=== PATIENT | male | born 1965 | race Caucasian/White ===

== ENCOUNTER 2016-10-12 20:31 | Emergency (ER) | payer SELFPAY ==
[2016-10-12] MEDS ORDERED: TETRACAINE HCL 0.5% OPH SOLN 2 ML ONE (22:17)
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
[2016-10-12 22:55] VITALS: BP 142/90
== END 2016-10-12 22:36 | disposition home or self-care (01) ==
LOC: ER 20:31
DX: S06.0X9A Concussion with loss of consciousness of unspecified duration, initial encounter (principal); S05.02XA Injury of conjunctiva and corneal abrasion without foreign body, left eye, initial encounter; R68.84 Jaw pain; H57.12 Ocular pain, left eye; Y04.2XXA Assault by strike against or bumped into by another person, initial encounter; Y92.59 Other trade areas as the place of occurrence of the external cause; F10.129 Alcohol abuse with intoxication, unspecified; F17.200 Nicotine dependence, unspecified, uncomplicated; I10 Essential (primary) hypertension; R11.0 Nausea
CPT/HCPCS: 99284; 70450; 70486; 72125; L0120

== ENCOUNTER 2017-08-31 12:15 | Emergency (ER) | payer SELFPAY ==
--- NOTE | 2017-08-31 14:08 | RADIOLOGY REPORT (SQ) ---
EXAM DESCRIPTION: HAND RIGHT 3 VIEWS COMPLETED DATE/TIME: 08/31/2017 1:37 pm REASON FOR STUDY: injury COMPARISON: Right hand 06/27/2017, 08/18/2009 EXAM PARAMETERS: NUMBER OF VIEWS: Three views. TECHNIQUE: AP, lateral and oblique radiographic images acquired of the right hand. LIMITATIONS: None. FINDINGS: MINERALIZATION: Normal. BONES: Old healed right proximal 5th metacarpal fracture. No acute displaced fracture. JOINTS: No effusions. SOFT TISSUES: Old Metallic radiopaque foreign bodies are present over the right index finger DIP join t region. New metallic fragments in the dorsal soft tissues, at the level of the proximal right 4th metacarpal. There is soft tissue swelling over the metacarpophalangeal joint region on the lateral v iew OTHER: No other significant finding. IMPRESSION: Old proximal 5th metacarpal fracture. Old metallic foreign bodies over the index finger DIP region New dorsal 4th finger proximal phalanx radiopaque soft tissue foreign bodies with soft tissue swellin g. TECHNICAL DOCUMENTATION: JOB ID: [id number] [employer]- All Rights Reserved
--- NOTE | 2017-08-31 14:32 | ER Document Report ---
ED Extremity Problem, Upper - General Chief Complaint: Arm Injury Stated Complaint: FALL/RIGHT ARM PAIN Time Seen by Provider: 08/31/17 14:29 Notes: Patient is a 52-year-old male, right-handed, presents after he punched a wall is having right hand pain. Said he fell and landed on his right elbow. He is intoxicated and is unsure of his tetanus status. Patient denies numbness, tingling or any other injuries. TRAVEL OUTSIDE OF THE [place] IN LAST 30 DAYS: No - Related Data Allergies/Adverse Reactions: No Known Allergies Allergy (Verified 08/31/17 12:22) Past Medical History - General Information source: Patient - Social History Smoking Status: Current Every Day Smoker Family History: Reviewed & Not Pertinent - Past Medical History Cardiac Medical History: Reports: Hx Hypertension Renal/ Medical History: Denies: Hx Peritoneal Dialysis GI Medical History: Reports: Hx Gastroesophageal Reflux Disease, Hx Ulcer Past Surgical History: Reports: Hx Orthopedic Surgery - L thumb; L knee - Immunizations Hx Diphtheria, Pertussis, Tetanus Vaccination: No Review of Systems - Review of Systems Notes: REVIEW OF SYSTEMS: CONSTITUTIONAL: -fevers, -chills EENT: -eye pain, -difficulty swallowing, -nasal congestion CARDIOVASCULAR: -chest pain, -syncope. RESPIRATORY: -cough, -SOB GASTROINTESTINAL: -abdominal pain, -nausea, -vomiting, -diarrhea GENITOURINARY: -dysuria, -hematuria MUSCULOSKELETAL: +right hand and elbow pain, -back pain, -neck pain SKIN: -rash or skin lesions. HEMATOLOGIC: -easy bruising or bleeding. LYMPHATIC: -swollen, enlarged glands. NEUROLOGICAL: -altered mental status or loss of consciousness, -headache, - neurologic symptoms PSYCHIATRIC: -anxiety, -depression. ALL OTHER SYSTEMS REVIEWED AND NEGATIVE. Physical Exam - Notes Notes: PHYSICAL EXAMINATION: GENERAL: Well-appearing, well-nourished and in no acute distress. Intoxicated. HEAD: Atraumatic, normocephalic. EYES: Pupils equal round and reactive to light, extraocular movements intact, sclera anicteric, conjunctiva are normal. ENT: nares patent, oropharynx clear without exudates. Moist mucous membranes. NECK: Normal range of motion, supple without lymphadenopathy LUNGS: Breath sounds clear to auscultation bilaterally and equal. No wheezes rales or rhonchi. HEART: Regular rate and rhythm without murmurs ABDOMEN: Soft, nontender, normoactive bowel sounds. No guarding, no rebound. No masses appreciated. EXTREMITIES: Swelling and abrasions over right 3rd-5th MCP joints, full ROM and brisk capillary refill. No open wounds over 4th proximal phalanax. Tenderness over right posterior elbow. Normal range of motion, no pitting or edema. No cyanosis. NEUROLOGICAL: Cranial nerves grossly intact. Normal speech, normal gait. Normal sensory and motor exams. PSYCH: Normal mood, normal affect. SKIN: Warm, Dry, normal turgor, no rashes or lesions noted. Course - Re-evaluation Re-evalutation: No fractures seen on x-ray. Patient is adamant that he did not have any involvement with an oral cavity and he just punched a wall. Told him that he could lose his hand if he was not telling me the truth due to possible septic joints, but the brother corroborates his story and he appears sober. Spoke to patient about new metallic foreign bodies in his fourth finger, but he does not know what these are and there are no open wounds. He is not having pain in this area or signs of infection. Will have patient follow-up with a hand surgeon for a recheck and possible removal of these foreign bodies. Given very strict return precautions and he understands. - Diagnostic Test Radiology reviewed: Image reviewed, Reports reviewed Radiology results interpreted by me: Right hand x-ray: Old proximal 5th metacarpal fracture. Old metallic foreign bodies over the index finger DIP region. New dorsal 4th finger proximal phalanx radiopaque soft tissue foreign bodies with soft tissue swelling. Right elbow x-ray (PACS not working, but read on the portable x-ray machine): no fractures Discharge - Discharge Clinical Impression: Foreign body (FB) in soft tissue Hand contusion Qualifiers: Encounter type: initial encounter Laterality: right Qualified Code(s): S60.221A - Contusion of right hand, initial encounter Elbow contusion Qualifiers: Encounter type: initial encounter Laterality: right Qualified Code(s): S50.01XA - Contusion of right elbow, initial encounter Condition: Stable Disposition: HOME, SELF-CARE Additional Instructions: There are metallic foreign bodies in your right fourth finger, but no broken bones in your hand. You must follow-up with the hand surgeon to see if these need removed. Return to the ER if they look like they are becoming infected, such as redness of the finger, fevers or discharge from the wound. Do not punch cummings. Use Tylenol, Motrin and ice packs to help with any pain. Try to cut down on your drinking. Contusion Your injury has resulted in a contusion -- a crushing of the deep tissues. No injury to important structures was detected during the physician's exam. Contusions vary in the amount of pain they cause, and in the length of time required for healing. Typically, the area will become bruised, and will remain painful to touch for two or three weeks. However, most patients are back to working and playing within a few days. After the initial period of rest and cold-packs, your symptoms (together with the doctor's recommendations) will determine how rapidly you can get back to full activity. Usually this means "do what feels okay, but don't do things that hurt." If re-examination was recommended, it's important to follow up as instructed. Call the doctor or return any time if pain increases, if swelling becomes severe, if you develop numbness or weakness in an injured extremity, or if any other alarming symptoms occur. Forms: Elevated Blood Pressure Referrals: ZEV NEWELL, [ACTIVE STAFF] - Follow up as needed
[2017-08-31] MEDS ORDERED: IBUPROFEN 600 MG TABLET PO ONE (14:43)
[2017-08-31] MEDS ORDERED: ACETAMINOPHEN 325 MG TABLET PO ONE (14:43)
[2017-08-31] MEDS ORDERED: DIPH/PERTUSS(ACELL)/TETANUS VAC/PF 0.5 ML SYR (>=10YO) IM ONE (14:50)
--- NOTE | 2017-08-31 16:45 | RADIOLOGY REPORT (SQ) ---
EXAM DESCRIPTION: ELBOW RIGHT OVER 2 VIEWS COMPLETED DATE/TIME: 08/31/2017 4:22 pm REASON FOR STUDY: right elbow pain COMPARISON: None. NUMBER OF VIEWS: Four views. TECHNIQUE: AP, lateral, and both oblique radiographic images acquired of the right elbow. LIMITATIONS: Study is limited somewhat due to the patient's condition. FINDINGS: MINERALIZATION: Normal. BONES: No acute fracture or dislocation. No worrisome bone lesions. JOINT: Small calcific density is identified between the distal humerus and proximal radius in the AP projection which could represent an intra-articular loose body. SOFT TISSUES: No soft tissue swelling. No foreign body. OTHER: No other significant finding. IMPRESSION: No acute fracture dislocation. Other findings as noted above TECHNICAL DOCUMENTATION: JOB ID: [id number] [employer]- All Rights Reserved
[2017-08-31] MEDS ORDERED: LIDOCAINE 1% INJ-PF (10 MG/ML) 30 ML SDV ONE (19:57)
== END 2017-08-31 15:35 | disposition home or self-care (01) ==
LOC: ER 12:15
DX: S60.221A Contusion of right hand, initial encounter (principal); M79.641 Pain in right hand; W22.01XA Walked into wall, initial encounter; S50.01XA Contusion of right elbow, initial encounter; M25.521 Pain in right elbow; W19.XXXA Unspecified fall, initial encounter; M79.5 Residual foreign body in soft tissue; F10.129 Alcohol abuse with intoxication, unspecified; I10 Essential (primary) hypertension; F17.200 Nicotine dependence, unspecified, uncomplicated
CPT/HCPCS: 90471; 90715; 99283

== ENCOUNTER 2017-08-31 17:12 | Inpatient (IN) | payer SELFPAY ==
--- NOTE | 2017-08-31 18:38 | EKG REPORT ---
SEVERITY:- OTHERWISE NORMAL ECG - SINUS TACHYCARDIA : Confirmed by: Osman Paz MD 31-Aug-2017 18:37:44
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
[2017-08-31] MEDS ORDERED: NICOTINE 21 MG/24 HR PATCH.TD24 TD ONE (19:09)
[2017-08-31 19:35] LABS: ABSOLUTE BASOPHILS # (AUTO) 0.1 10^3/uL (0.0-0.2); ABSOLUTE LYMPHOCYTES (AUTO) 2.8 10^3/uL (0.5-4.7); ABSOLUTE MONOCYTES (AUTO) 0.9 10^3/uL (0.1-1.4); ABSOLUTE NEUT (AUTO) 11.7 10^3/uL (1.7-8.2); BASOPHILS % (AUTO) 0.7 % (0-2); EOSINOPHILS % (AUTO) 0.3 % (0-6); HEMATOCRIT 47.7 % (37.9-51.0); HEMOGLOBIN 16.3 g/dL (13.5-17.0); LYMPHOCYTES % (AUTO) 18.1 % (13-45); MEAN CORPUSCULAR HEMOGLOBIN 38.1 pg (27.0-33.4); MEAN CORPUSCULAR HGB CONC 34.1 g/dL (32.0-36.0); MONOCYTES % (AUTO) 6.1 % (3-13); PLATELET COUNT 217 10^3/uL (150-450); RED BLOOD COUNT 4.27 10^6/uL (4.35-5.55); RED CELL DISTRIBUTION WIDTH 14.8 % (11.5-14.0); SEGMENTED NEUTROPHILS % (AUTO) 74.8 % (42-78); TOTAL CELLS COUNTED % (AUTO) 100 %; WHITE BLOOD COUNT 15.6 10^3/uL (4.0-10.5)
[2017-08-31] MEDS ORDERED: KETAMINE HCL INJ 500 MG/10 ML VIAL IV ONE (19:50)
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
[2017-08-31] MEDS ORDERED: KETAMINE HCL INJ 500 MG/10 ML VIAL ONE (19:52)
[2017-08-31 19:53] LABS: TOXIC GRANULATION SLIGHT
[2017-08-31 19:54] LABS: ANISOCYTOSIS SLIGHT; PLATELET COMMENT ADEQUATE; STOMATOCYTES SLIGHT
[2017-08-31 19:55] LABS: MEAN CORPUSCULAR VOLUME 112 fl (80-97)
[2017-08-31] MEDS ORDERED: LORAZEPAM INJ 2 MG/1 ML VIAL IV ONE (19:55)
[2017-08-31 19:56] LABS: ALANINE AMINOTRANSFERASE 34 U/L (21-72); ALBUMIN 5.1 g/dL (3.5-5.0); ALKALINE PHOSPHATASE 246 U/L (38-126); ANION GAP 14 (5-19); ASPARTATE AMINO TRANSFERASE 112 U/L (17-59); BILIRUBIN,DIRECT 0.5 mg/dL (0.0-0.4); BILIRUBIN,TOTAL 0.7 mg/dL (0.2-1.3); BLOOD UREA NITROGEN 11 mg/dL (7-20); CALCIUM 9.3 mg/dL (8.4-10.2); CARBON DIOXIDE 28 mmol/L (22-30); CHLORIDE 106 mmol/L (98-107); GLUCOSE 106 mg/dL (75-110); POTASSIUM 4.3 mmol/L (3.6-5.0); SODIUM 148.4 mmol/L (137-145); TOTAL PROTEIN 8.6 g/dL (6.3-8.2)
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
--- NOTE | 2017-08-31 20:52 | RADIOLOGY REPORT (SQ) ---
EXAM DESCRIPTION: CHEST SINGLE VIEW COMPLETED DATE/TIME: 08/31/2017 8:39 pm REASON FOR STUDY: chest tube PLACEMENT COMPARISON: CT dated 08/31/2017. EXAM PARAMETERS: NUMBER OF VIEWS: One view. TECHNIQUE: Single frontal radiographic view of the chest acquired. RADIATION DOSE: NA LIMITATIONS: None. FINDINGS: LUNGS AND PLEURA: No opacities, masses or pneumothorax. No pleural effusion. MEDIASTINUM AND HILAR STRUCTURES: No masses. Contour normal. HEART AND VASCULAR STRUCTURES: Heart normal in size. Normal vasculature. BONES: No acute findings. HARDWARE: Right-sided chest tube. OTHER: Right side subcutaneous emphysema. IMPRESSION: RIGHT SIDE PNEUMOTHORAX NO LONGER PRESENT AFTER PLACEMENT OF CHEST TUBE. THE RIGHT RIB FRACTURE VISUALIZED ON CT IS NOT VISIBLE ON X-RAY. TECHNICAL DOCUMENTATION: JOB ID: [id number] [employer]- All Rights Reserved
[2017-08-31] MEDS ORDERED: FENTANYL CITRATE INJ/PF 100 MCG/2 ML AMPUL IV ONE (21:58)
[2017-08-31] MEDS: MORPHINE SULFATE 10 MG/ML INJ IV PRN (22:23)
[2017-08-31] MEDS: ONDANSETRON HCL INJ/PF 4 MG/2 ML SDV IV PRN (22:32)
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
[2017-08-31] MEDS ORDERED: MORPHINE SULFATE 10 MG/ML INJ IV ONE (22:46)
[2017-09-01] MEDS ORDERED: INFLUENZA ADLT QUAD (36MOS+) 2017-18 VAC 0.5 ML SYR IM PRN (00:09)
[2017-09-01] MEDS: NORMAL SALINE 1000 ML 1,000 ML IV PRN ×2 (00:27→11:05)
[2017-09-01] MEDS: OXYCODONE-ACETAMINOPHEN 5-325 MG TABLET PO PRN ×5 (00:36→19:33)
[2017-09-01] MEDS: MORPHINE SULFATE 10 MG/ML INJ IV PRN ×2 (03:13→13:37)
[2017-09-01] MEDS ORDERED: LORAZEPAM INJ 2 MG/1 ML VIAL IV PRN (06:54)
[2017-09-01] MEDS ORDERED: LORAZEPAM INJ 2 MG/1 ML VIAL ONE (06:56)
[2017-09-01 07:19] LABS: ABSOLUTE BASOPHILS # (AUTO) 0.1 10^3/uL (0.0-0.2); ABSOLUTE LYMPHOCYTES (AUTO) 1.5 10^3/uL (0.5-4.7); ABSOLUTE NEUT (AUTO) 8.3 10^3/uL (1.7-8.2); BASOPHILS % (AUTO) 0.9 % (0-2); EOSINOPHILS % (AUTO) 0.2 % (0-6); HEMATOCRIT 41.5 % (37.9-51.0); HEMOGLOBIN 14.3 g/dL (13.5-17.0); LYMPHOCYTES % (AUTO) 14.1 % (13-45); MEAN CORPUSCULAR HEMOGLOBIN 38.8 pg (27.0-33.4); MEAN CORPUSCULAR HGB CONC 34.6 g/dL (32.0-36.0); MEAN CORPUSCULAR VOLUME 112 fl (80-97); MONOCYTES % (AUTO) 9.2 % (3-13); PLATELET COUNT 174 10^3/uL (150-450); RED CELL DISTRIBUTION WIDTH 14.7 % (11.5-14.0); SEGMENTED NEUTROPHILS % (AUTO) 75.6 % (42-78); TOTAL CELLS COUNTED % (AUTO) 100 %; WHITE BLOOD COUNT 10.9 10^3/uL (4.0-10.5)
[2017-09-01 07:33] LABS: ALANINE AMINOTRANSFERASE 38 U/L (21-72); ALBUMIN 4.3 g/dL (3.5-5.0); ALKALINE PHOSPHATASE 214 U/L (38-126); ANION GAP 16 (5-19); ASPARTATE AMINO TRANSFERASE 86 U/L (17-59); BILIRUBIN,DIRECT 0.5 mg/dL (0.0-0.4); BILIRUBIN,TOTAL 1.2 mg/dL (0.2-1.3); BLOOD UREA NITROGEN 12 mg/dL (7-20); CALCIUM 8.6 mg/dL (8.4-10.2); CARBON DIOXIDE 22 mmol/L (22-30); CHLORIDE 103 mmol/L (98-107); GLUCOSE 67 mg/dL (75-110); LIPASE 119.7 U/L (23-300); POTASSIUM 3.7 mmol/L (3.6-5.0); TOTAL PROTEIN 6.8 g/dL (6.3-8.2)
[2017-09-01 07:56] LABS: ANISOCYTOSIS SLIGHT; PLATELET COMMENT ADEQUATE; POLYCHROMASIA SLIGHT; STOMATOCYTES SLIGHT
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
[2017-09-01] MEDS: FOLIC ACID 1 MG TABLET PO SCH (09:07)
[2017-09-01] MEDS: THIAMINE HCL 100 MG TABLET PO SCH (09:08)
[2017-09-01] MEDS: MULTIVITAMIN TABLET PO SCH (09:08)
[2017-09-01 09:16] LABS: APPEARANCE,URINE CLEAR; BILIRUBIN,URINE NEGATIVE (NEGATIVE); COLOR,URINE YELLOW; GLUCOSE, URINE NEGATIVE (NEGATIVE); KETONES,URINE 20 mg/dL (NEGATIVE); LEUKOCYTE ESTERASE,URINE NEGATIVE (NEGATIVE); NITRITE,URINE NEGATIVE (NEGATIVE); PROTEIN,URINE NEGATIVE (NEGATIVE)
[2017-09-01 09:17] LABS: URINE SPECIFIC GRAVITY > 1.060
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
[2017-09-01] MEDS ORDERED: DIPHENHYDRAMINE HCL 25 MG CAPSULE PO ONE (15:00)
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
[2017-09-02] MEDS: OXYCODONE-ACETAMINOPHEN 5-325 MG TABLET PO PRN ×2 (00:07→05:20)
[2017-09-02] MEDS: ONDANSETRON HCL INJ/PF 4 MG/2 ML SDV IV PRN (05:31)
[2017-09-02 06:55] LABS: HEMATOCRIT 40.9 % (37.9-51.0); HEMOGLOBIN 14.1 g/dL (13.5-17.0); MEAN CORPUSCULAR HEMOGLOBIN 38.8 pg (27.0-33.4); MEAN CORPUSCULAR HGB CONC 34.4 g/dL (32.0-36.0); MEAN CORPUSCULAR VOLUME 113 fl (80-97); PLATELET COUNT 126 10^3/uL (150-450); RED BLOOD COUNT 3.63 10^6/uL (4.35-5.55); RED CELL DISTRIBUTION WIDTH 14.3 % (11.5-14.0); WHITE BLOOD COUNT 5.8 10^3/uL (4.0-10.5)
[2017-09-02 07:09] LABS: ALANINE AMINOTRANSFERASE 31 U/L (21-72); ALKALINE PHOSPHATASE 180 U/L (38-126); ANION GAP 8 (5-19); ASPARTATE AMINO TRANSFERASE 59 U/L (17-59); BILIRUBIN,DIRECT 0.5 mg/dL (0.0-0.4); BILIRUBIN,TOTAL 1.6 mg/dL (0.2-1.3); BLOOD UREA NITROGEN 8 mg/dL (7-20); CALCIUM 9.2 mg/dL (8.4-10.2); CARBON DIOXIDE 29 mmol/L (22-30); CHLORIDE 100 mmol/L (98-107); GLUCOSE 90 mg/dL (75-110); POTASSIUM 4.5 mmol/L (3.6-5.0); SODIUM 137.2 mmol/L (137-145); TOTAL PROTEIN 6.6 g/dL (6.3-8.2)
[2017-09-02 08:13] LABS: FOLATE 7.12 ng/mL (>2.76)
--- NOTE | 2017-09-02 08:34 | RADIOLOGY REPORT (SQ) ---
EXAM DESCRIPTION: CHEST SINGLE VIEW COMPLETED DATE/TIME: 09/02/2017 8:20 am REASON FOR STUDY: Pneumothorax COMPARISON: Chest films 09/01/2017, 08/26/2017 CT chest 08/31/2017 EXAM PARAMETERS: NUMBER OF VIEWS: One view. TECHNIQUE: Single frontal radiographic view of the chest acquired. RADIATION DOSE: NA LIMITATIONS: None. FINDINGS: LUNGS AND PLEURA: A right chest tube is in place, unchanged from 09/01/2017, 757 hours. There is trace deep in the right apical pneumothorax. Stable right chest wall air. No focal infiltrates. No pleural effusion. No left pneumothorax. MEDIASTINUM AND HILAR STRUCTURES: No masses. Contour normal. HEART AND VASCULAR STRUCTURES: Heart normal in size. Normal vasculature. BONES: Right lateral 5th rib fracture is difficult to visualize on today's plain film HARDWARE: Right chest tube in good positioning OTHER: No other significant finding. IMPRESSION: Right chest tube in good positioning. Trace if any apical pneumothorax. Stable minimal right lateral chest wall air TECHNICAL DOCUMENTATION: JOB ID: [id number] [employer]- All Rights Reserved
[2017-09-02] MEDS: THIAMINE HCL 100 MG TABLET PO SCH (08:56)
[2017-09-02] MEDS: FOLIC ACID 1 MG TABLET PO SCH (08:56)
[2017-09-02] MEDS: MULTIVITAMIN TABLET PO SCH (08:57)
[2017-09-02] MEDS ORDERED: NICOTINE 21 MG/24 HR PATCH.TD24 TD ONE (14:05)
--- NOTE | 2017-09-02 16:32 | RADIOLOGY REPORT (SQ) ---
EXAM DESCRIPTION: CHEST PA/LAT COMPLETED DATE/TIME: 09/02/2017 4:22 pm REASON FOR STUDY: POST CHEST TUBE REMOVAL COMPARISON: Chest films 09/02/2017, 09/01/2017, 08/31/2017 EXAM PARAMETERS: NUMBER OF VIEWS: two views TECHNIQUE: Digital Frontal and Lateral radiographic views of the chest acquired. RADIATION DOSE: NA LIMITATIONS: none FINDINGS: LUNGS AND PLEURA: Post right chest tube removal. No right pneumothorax. No focal pulmona ry infiltrates. No pleural effusion. MEDIASTINUM AND HILAR STRUCTURES: No masses or contour abnormalities. HEART AND VASCULAR STRUCTURES: Heart normal size. No evidence for failure. BONES: Right lateral 5th rib fracture not well seen by plain films HARDWARE: None in the chest. OTHER: Minimal right chest wall soft tissue air IMPRESSION: Post right chest tube removal without pneumothorax. TECHNICAL DOCUMENTATION: JOB ID: [id number] [employer]- All Rights Reserved
--- NOTE | 2017-09-02 17:28 | PDOC PROGRESS REPORT ---
Subjective Progress Note for:: 09/02/17 Subjective:: Pains at the chest tube site Reason For Visit: TRAUMATIC PNEUMOTHORAX,FRACTURE RIGHT 5TH RIB Physical Exam Vital Signs: Temp Pulse Resp BP Pulse Ox 98.1 F 66 18 142/74 H 98 09/02/17 14:57 09/02/17 14:57 09/02/17 14:57 09/02/17 14:57 09/02/17 14:57 Intake & Output 09/01/17 09/02/17 09/03/17 06:59 06:59 06:59 Intake Total 120 720 535 Output Total 50 1350 625 Balance 70 -630 -90 Weight 70.5 kg 77.8 kg Exam: Right chest tube was removed and an inclusive dressing over a xeroform gauze. Results Laboratory Results: 09/02/17 06:02 09/02/17 06:02 09/02/17 09/02/17 06:02 06:02 WBC 5.8 RBC 3.63 L Hgb 14.1 Hct 40.9 MCV 113 H MCH 38.8 H MCHC 34.4 RDW 14.3 H Plt Count 126 L Sodium 137.2 Potassium 4.5 Chloride 100 Carbon Dioxide 29 Anion Gap 8 BUN 8 Creatinine 0.61 Est GFR ( Amer) > 60 Est GFR (Non-Af Amer) > 60 Glucose 90 Calcium 9.2 Total Bilirubin 1.6 H AST 59 ALT 31 Alkaline Phosphatase 180 H Total Protein 6.6 Albumin 4.0 Vitamin B12 471.0 Folate 7.12 Impressions: Chest CT 08/31/17 19:01 IMPRESSION: 1. LARGE RIGHT PNEUMOTHORAX. 2. FRACTURE OF THE LATERAL RIGHT 5TH RIB. SUBCUTANEOUS EMPHYSEMA IN THE RIGHT CHEST WALL. Head CT 08/31/17 19:01 IMPRESSION: NORMAL BRAIN CT WITHOUT CONTRAST. EVIDENCE OF ACUTE STROKE: NO. Cervical Spine CT 08/31/17 19:04 IMPRESSION: CHRONIC DEGENERATIVE CHANGES. NO ACUTE FINDINGS. Chest X-Ray 09/02/17 06:00 IMPRESSION: Right chest tube in good positioning. Trace if any apical pneumothorax. Stable minimal right lateral chest wall air Assessment & Plan - Diagnosis (1) Head injury Qualifiers: Encounter type: initial encounter Qualified Code(s): S09.90XA - Unspecified injury of head, initial encounter Is this a current diagnosis for this admission?: Yes (2) Pneumothorax, traumatic Qualifiers: Encounter type: initial encounter Qualified Code(s): S27.0XXA - Traumatic pneumothorax, initial encounter Is this a current diagnosis for this admission?: Yes (3) Chest pain Qualifiers: Chest pain type: unspecified Qualified Code(s): R07.9 - Chest pain, unspecified Is this a current diagnosis for this admission?: Yes (4) Elbow contusion Qualifiers: Encounter type: initial encounter Laterality: right Qualified Code(s): S50.01XA - Contusion of right elbow, initial encounter Is this a current diagnosis for this admission?: Yes (5) Hand contusion Qualifiers: Encounter type: initial encounter Laterality: right Qualified Code(s): S60.221A - Contusion of right hand, initial encounter - Time Time Spent with patient: 15-24 minutes - Plan Summary Plan Summary: Chest xray post chest tube removal showed right lung well expanded with no pneumothorax Will discharge patient and follow up at the surgical clinic in 2 weeks.
[2017-09-02 17:31] VITALS: BP 131/85
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
== END 2017-09-02 18:17 | disposition home or self-care (01) | DRG 200 ==
LOC: ER 17:12 → EH 20:45 → 4S 23:44
PROVIDERS: ADMIT Surgery; ATTEND Surgery
PROC: 0W9900Z Drainage of Right Pleural Cavity with Drainage Device, Open Approach (ICD-10-PCS; principal; 2017-08-31)
DX: S27.0XXA Traumatic pneumothorax, initial encounter (principal); F10.239 Alcohol dependence with withdrawal, unspecified; S22.31XA Fracture of one rib, right side, initial encounter for closed fracture; I10 Essential (primary) hypertension; K21.9 Gastro-esophageal reflux disease without esophagitis; F17.210 Nicotine dependence, cigarettes, uncomplicated; S50.01XA Contusion of right elbow, initial encounter; S60.221A Contusion of right hand, initial encounter; S09.90XA Unspecified injury of head, initial encounter; V47.0XXA Car driver injured in collision with fixed or stationary object in nontraffic accident, initial encounter
CPT/HCPCS: 36415; 70450; 71045; 71046; 71260; 72125; 80053; 81001; 82607; 82746; 82962; 83690; 85025; 85027; 93005; 93010; 94799; 96374; 96375; 99291; 99152; J2060; J2270; J2405; J3490; J7030

== ENCOUNTER 2017-09-05 20:32 | Emergency (ER) | payer SELFPAY ==
--- NOTE | 2017-09-05 20:54 | ER Document Report ---
ED Respiratory Problem - General Chief Complaint: Breathing Difficulty Stated Complaint: DIFFICULTY BREATHING Mode of Arrival: Medic Information source: Patient, Emergency Med Personnel TRAVEL OUTSIDE OF THE [place] IN LAST 30 DAYS: No - HPI Notes: 52-year-old gentleman presented today via EMS for evaluation of shortness of breath. Patient has a history of pneumothorax of his right lung status post chest tube. Patient had chest tube removed prior to his disposition from the hospital. Patient called ambulance because he was feeling short of breath. Upon arrival of EMS patient appears to be complaining of gasping for air but has bilateral breath sounds. Patient also has been drinking and smells of alcohol. - Related Data Allergies/Adverse Reactions: No Known Allergies Allergy (Verified 08/31/17 12:22) Past Medical History - General Information source: Patient, Emergency Med Personnel - Social History Smoking Status: Current Some Day Smoker Frequency of alcohol use: Heavy Family History: Reviewed & Not Pertinent - Past Medical History Cardiac Medical History: Reports: Hx Hypertension Renal/ Medical History: Denies: Hx Peritoneal Dialysis GI Medical History: Reports: Hx Gastroesophageal Reflux Disease, Hx Ulcer Past Surgical History: Reports: Hx Orthopedic Surgery - L thumb; L knee - Immunizations Hx Diphtheria, Pertussis, Tetanus Vaccination: No Review of Systems - Review of Systems Notes: REVIEW OF SYSTEMS: CONSTITUTIONAL: -fevers, -chills EENT: -eye pain, -difficulty swallowing, -nasal congestion CARDIOVASCULAR: -chest pain, -syncope. RESPIRATORY: -cough, + shortness of breath GASTROINTESTINAL: -abdominal pain, -nausea, -vomiting, -diarrhea GENITOURINARY: -dysuria, -hematuria MUSCULOSKELETAL: -back pain, -neck pain SKIN: -rash or skin lesions. HEMATOLOGIC: -easy bruising or bleeding. LYMPHATIC: -swollen, enlarged glands. NEUROLOGICAL: -altered mental status or loss of consciousness, -headache, - neurologic symptoms PSYCHIATRIC: -anxiety, -depression. ALL OTHER SYSTEMS REVIEWED AND NEGATIVE. Physical Exam - Notes Notes: Reviewed vital signs and nursing note as charted by RN. CONSTITUTIONAL: Alert and oriented and responds appropriately, smells of alcohol HEAD: Normocephalic; atraumatic, old facial abrasions EYES: PERRL; Conjunctivae clear, sclerae non-icteric ENT: normal nose; no rhinorrhea; moist mucous membranes; pharynx without lesions noted NECK: Supple without meningismus CARD: Regular rate and rhythm; no murmurs, no clicks, no rubs, no gallops; symmetric distal pulses RESP: Normal chest excursion without splinting or tachypnea; breath sounds clear and equal bilaterally patient has a very unusual breathing pattern, patient is gasping for air but does not appear to be in respiratory distress ABD/GI: Normal bowel sounds; non-distended; soft, BACK: The back appears normal and is non-tender to palpation EXT: Normal ROM in all joints; non-tender to palpation; no cyanosis, no effusions, no edema SKIN: Normal color for age and race; warm; dry; good turgor; capillary refill < 2 seconds; no acute lesions noted NEURO: .Cranial nerves 3-12 intact. Motor strength 5/5 bilaterally. Sensation intact to touch bilaterally. No pronator drift. Finger to nose intact bilaterally PSYCH: Appropriate, smells of alcohol Course - Re-evaluation Re-evalutation: 09/05/17 20:30 Patient is here for evaluation of shortness of breath, patient does have history of previous pneumothorax We will obtain chest x-ray Patient appears to be hemodynamically stable, no hypoxia or respiratory distress Reassessment 9:30 PM Patient is hemo-dynamically stable, chest x-ray with no acute pneumothorax We will discharge home No suspicion for recurrence of pneumothorax - Diagnostic Test Radiology reviewed: Image reviewed Radiology results interpreted by me: 09/05/17 21:30 Chest x-ray with no pneumothorax or recurrent pneumothorax Discharge - Discharge Clinical Impression: Alcohol abuse, Shortness of breath Condition: Stable Disposition: HOME, SELF-CARE Instructions: Dyspnea, Nonspecific ([facility]) Additional Instructions: Please come back if he had worsening shortness of breath, chest pain or difficulty breathing
--- NOTE | 2017-09-05 21:12 | RADIOLOGY REPORT (SQ) ---
EXAM DESCRIPTION: CHEST SINGLE VIEW COMPLETED DATE/TIME: 09/05/2017 8:48 pm REASON FOR STUDY: SOB COMPARISON: 09/02/2017 and 08/31/2017. EXAM PARAMETERS: NUMBER OF VIEWS: One view. TECHNIQUE: Single frontal radiographic view of the chest acquired. RADIATION DOSE: NA LIMITATIONS: None. FINDINGS: LUNGS AND PLEURA: No opacities, masses or pneumothorax. No pleural effusion. MEDIASTINUM AND HILAR STRUCTURES: No masses. Contour normal. HEART AND VASCULAR STRUCTURES: Heart normal in size. Normal vasculature. BONES: No acute findings. HARDWARE: None in the chest. OTHER: Right side subcutaneous emphysema has improved. No other significant finding. IMPRESSION: NO ACUTE RADIOGRAPHIC FINDING IN THE CHEST. NO RESIDUAL OR RECURRENT PNEUMOTHORAX. TECHNICAL DOCUMENTATION: JOB ID: [id number]- All Rights Reserved
[2017-09-05 21:49] VITALS: BP 103/75
== END 2017-09-05 21:50 | disposition home or self-care (01) ==
LOC: ER 20:32
DX: R06.02 Shortness of breath (principal); F10.10 Alcohol abuse, uncomplicated; F17.200 Nicotine dependence, unspecified, uncomplicated; I10 Essential (primary) hypertension; Z98.890 Other specified postprocedural states; Z87.09 Personal history of other diseases of the respiratory system
CPT/HCPCS: 71045; 99285

== ENCOUNTER 2017-10-08 19:51 | Emergency (ER) | payer SELFPAY ==
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
[2017-10-08 22:14] LABS: ABSOLUTE BASOPHILS # (AUTO) 0.1 10^3/uL (0.0-0.2); ABSOLUTE LYMPHOCYTES (AUTO) 1.5 10^3/uL (0.5-4.7); ABSOLUTE MONOCYTES (AUTO) 0.4 10^3/uL (0.1-1.4); EOSINOPHILS % (AUTO) 0.3 % (0-6); HEMATOCRIT 49.3 % (37.9-51.0); LYMPHOCYTES % (AUTO) 21.9 % (13-45); MEAN CORPUSCULAR HEMOGLOBIN 38.6 pg (27.0-33.4); MEAN CORPUSCULAR HGB CONC 34.5 g/dL (32.0-36.0); MEAN CORPUSCULAR VOLUME 112 fl (80-97); MONOCYTES % (AUTO) 5.8 % (3-13); RED BLOOD COUNT 4.41 10^6/uL (4.35-5.55); TOTAL CELLS COUNTED % (AUTO) 100 %
[2017-10-08 22:20] LABS: ALANINE AMINOTRANSFERASE 54 U/L (21-72); ALBUMIN 4.6 g/dL (3.5-5.0); ALKALINE PHOSPHATASE 249 U/L (38-126); ANION GAP 16 (5-19); ASPARTATE AMINO TRANSFERASE 147 U/L (17-59); BILIRUBIN,DIRECT 0.5 mg/dL (0.0-0.4); BILIRUBIN,TOTAL 0.8 mg/dL (0.2-1.3); BLOOD UREA NITROGEN 13 mg/dL (7-20); CARBON DIOXIDE 29 mmol/L (22-30); CHLORIDE 102 mmol/L (98-107); GLUCOSE 70 mg/dL (75-110); POTASSIUM 3.9 mmol/L (3.6-5.0); SODIUM 147.3 mmol/L (137-145); TOTAL PROTEIN 7.2 g/dL (6.3-8.2)
[2017-10-08 22:26] LABS: ACETAMINOPHEN < 10 ug/mL (10-30); SALICYLATE < 1.0 mg/dL (2.0-20.0)
[2017-10-08 22:29] LABS: ALCOHOL 378 mg/dL (NONE DETECTED)
[2017-10-08 22:33] LABS: PLATELET COUNT 94 10^3/uL (150-450)
[2017-10-08 22:36] LABS: ANISOCYTOSIS SLIGHT; PLATELET COMMENT DECREASED
[2017-10-08 23:29] LABS: APPEARANCE,URINE SLIGHTLY-CLOUDY; BILIRUBIN,URINE NEGATIVE (NEGATIVE); COLOR,URINE YELLOW; GLUCOSE, URINE NEGATIVE (NEGATIVE); KETONES,URINE 20 mg/dL (NEGATIVE); LEUKOCYTE ESTERASE,URINE NEGATIVE (NEGATIVE); NITRITE,URINE NEGATIVE (NEGATIVE); PROTEIN,URINE NEGATIVE (NEGATIVE); URINE SPECIFIC GRAVITY 1.019
[2017-10-08 23:43] LABS: URINE AMPHETAMINES SCREEN NEGATIVE; URINE BARBITURATES SCREEN NEGATIVE; URINE BENZODIAZEPINES SCREEN NEGATIVE; URINE COCAINE SCREEN NEGATIVE; URINE MARIJUANA (THC) SCREEN UNCONFIRMED POSITIVE; URINE METHADONE SCREEN NEGATIVE; URINE PHENCYCLIDINE SCREEN NEGATIVE
[2017-10-09] MEDS ORDERED: HYDROCODONE/ACETAMINOPHEN 5-325 MG TABLET PO ONE (02:49)
[2017-10-09] MEDS ORDERED: LORAZEPAM INJ 2 MG/1 ML VIAL IV ONE (02:49)
[2017-10-09] MEDS ORDERED: NORMAL SALINE 1000 ML 1,000 ML IV ONE (02:49)
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
--- NOTE | 2017-10-09 09:20 | ER Document Report ---
Doctor's Note Notes: 10/09/17 09:19 Medical rounds: Chart reviewed and patient interviewed briefly. Patient is mildly hypertensive, otherwise vital signs are normal. Laboratory results are notable for a toxic level of ethanol, also some mild elevation of LFTs which are probably alcohol related. Patient states he feels better than yesterday. He is alert, oriented, and cooperative. He is medically stable, awaiting evaluation and recommendations by psych.
[2017-10-09 11:04] VITALS: BP 158/88
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
== END 2017-10-09 10:30 | disposition home or self-care (01) ==
LOC: ER 19:51
DX: F32.9 Major depressive disorder, single episode, unspecified (principal); F10.129 Alcohol abuse with intoxication, unspecified; F12.99 Cannabis use, unspecified with unspecified cannabis-induced disorder; R10.9 Unspecified abdominal pain; I10 Essential (primary) hypertension; J44.9 Chronic obstructive pulmonary disease, unspecified; F17.200 Nicotine dependence, unspecified, uncomplicated; Z63.4 Disappearance and death of family member
CPT/HCPCS: 99284; 96361; 96374; 86900; 86901; 36415; 86850; 80307 ×4; 85025; 80053; 81001; J2060; J7030

== ENCOUNTER 2017-11-24 22:29 | Emergency (ER) | payer SELFPAY ==
[2017-11-24] MEDS ORDERED: LORAZEPAM 1 MG TABLET PO ONE (23:28)
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
[2017-11-24 23:44] LABS: ABSOLUTE BASOPHILS # (AUTO) 0.1 10^3/uL (0.0-0.2); ABSOLUTE EOSINOPHILS # (AUTO) 0.1 10^3/uL (0.0-0.6); ABSOLUTE LYMPHOCYTES (AUTO) 1.8 10^3/uL (0.5-4.7); ABSOLUTE MONOCYTES (AUTO) 0.9 10^3/uL (0.1-1.4); ABSOLUTE NEUT (AUTO) 8.2 10^3/uL (1.7-8.2); BASOPHILS % (AUTO) 0.7 % (0-2); EOSINOPHILS % (AUTO) 0.5 % (0-6); HEMATOCRIT 46.8 % (37.9-51.0); HEMOGLOBIN 16.3 g/dL (13.5-17.0); LYMPHOCYTES % (AUTO) 16.2 % (13-45); MEAN CORPUSCULAR VOLUME 109 fl (80-97); PLATELET COUNT 162 10^3/uL (150-450); RED CELL DISTRIBUTION WIDTH 14.1 % (11.5-14.0); SEGMENTED NEUTROPHILS % (AUTO) 74.6 % (42-78); TOTAL CELLS COUNTED % (AUTO) 100 %
[2017-11-24 23:55] LABS: ACETAMINOPHEN < 10 ug/mL (10-30); ALANINE AMINOTRANSFERASE 48 U/L (21-72); ALBUMIN 4.6 g/dL (3.5-5.0); ALCOHOL 292 mg/dL (NONE DETECTED); ALKALINE PHOSPHATASE 365 U/L (38-126); ANION GAP 16 (5-19); ASPARTATE AMINO TRANSFERASE 113 U/L (17-59); BILIRUBIN,DIRECT 0.5 mg/dL (0.0-0.4); BILIRUBIN,TOTAL 0.9 mg/dL (0.2-1.3); BLOOD UREA NITROGEN 11 mg/dL (7-20); CALCIUM 9.5 mg/dL (8.4-10.2); CARBON DIOXIDE 30 mmol/L (22-30); CHLORIDE 93 mmol/L (98-107); GLUCOSE 126 mg/dL (75-110); POTASSIUM 3.7 mmol/L (3.6-5.0); SALICYLATE < 1.0 mg/dL (2.0-20.0); SODIUM 139.4 mmol/L (137-145); TOTAL PROTEIN 7.8 g/dL (6.3-8.2)
[2017-11-25 01:07] LABS: APPEARANCE,URINE SLIGHTLY-CLOUDY; BILIRUBIN,URINE SMALL (NEGATIVE); COLOR,URINE AMBER; GLUCOSE, URINE NEGATIVE (NEGATIVE); KETONES,URINE NEGATIVE (NEGATIVE); LEUKOCYTE ESTERASE,URINE NEGATIVE (NEGATIVE); NITRITE,URINE NEGATIVE (NEGATIVE); PROTEIN,URINE 30 mg/dL (NEGATIVE); URINE SPECIFIC GRAVITY 1.021
[2017-11-25 01:29] LABS: URINE AMPHETAMINES SCREEN NEGATIVE; URINE BARBITURATES SCREEN NEGATIVE; URINE BENZODIAZEPINES SCREEN NEGATIVE; URINE COCAINE SCREEN NEGATIVE; URINE MARIJUANA (THC) SCREEN UNCONFIRMED POSITIVE; URINE METHADONE SCREEN NEGATIVE; URINE PHENCYCLIDINE SCREEN NEGATIVE
[2017-11-25] MEDS ORDERED: THIAMINE HCL 100 MG, FOLIC ACID 1 MG in NORMAL SALINE 250 ML IV ONE (04:02)
[2017-11-25] MEDS ORDERED: FOLIC ACID INJ 5 MG/1 ML 10 ML VIAL ONE (04:27)
[2017-11-25] MEDS ORDERED: THIAMINE HCL INJ 200 MG/2 ML VIAL ONE (04:28)
[2017-11-25] MEDS: NORMAL SALINE 1000 ML 1,000 ML IV PRN ×2 (04:47→06:25)
--- NOTE | 2017-11-25 05:22 | RADIOLOGY REPORT (SQ) ---
EXAM DESCRIPTION: CT ABDOMEN WITH CONTRAST CLINICAL HISTORY: epigastric pain COMPARISON: 02/28/2016 TECHNIQUE: CT of the abdomen performed following IV administration of 81 mL of Isovue-370. DLP: 204 mGycm FINDINGS: Lung Bases: The visualized lung bases are clear. Bones: No destructive bone lesions identified. Degenerative change of the spine. Abdomen: Liver: The liver has normal size and density. No intrahepatic mass or biliary dilatation. MAL involving the right hepatic lobe. Gallbladder: No calcified gallstones. Spleen, Pancreas, and Adrenal Glands: The spleen, pancreas, and adrenal glands are unremarkable. Kidneys: The kidneys have normal size and contour without evidence of solid mass or hydronephrosis. Vasculature: Aortoiliac atherosclerosis. The portal vein is patent. The proximal visceral and renal arteries are patent. Stomach: The stomach and duodenum have normal course. Other: No free intraperitoneal air. No free fluid or lymphadenopathy. Bowel: No dilated loops of the visualized large or small bowel. IMPRESSION: 1. No acute inflammatory or obstructive process identified. This exam was performed according to our departmental dose-optimization program, which includes automated exposure control, adjustment of the mA and/or kV according to patient size and/or use of iterative reconstruction technique.
[2017-11-25] MEDS ORDERED: LORAZEPAM INJ 2 MG/1 ML VIAL IV ONE (06:35)
[2017-11-25] MEDS ORDERED: ACETAMINOPHEN 325 MG TABLET PO ONE (08:01)
[2017-11-25 09:47] VITALS: BP 134/90
--- NOTE | 2017-11-25 10:24 | ER Document Report ---
Doctor's Note Notes: 11/25/17 10:19 Rounds: Chart reviewed and patient interviewed. Patient has a history of marijuana and alcohol abuse. Also hypertension. Being evaluated here for being heavily intoxicated. Vital signs are all normal. Lab studies showed a very slight increase in lipase of 411, but repeat a few hours later was only 326. WBC 11,000. Alcohol level 292, so likely should be down to sober by now based upon normal metabolism. Patient appears to be medically stable for transfer or discharge. Rigoberto Arreguin MD
--- NOTE | 2017-11-25 21:02 | EKG REPORT ---
SEVERITY:- BORDERLINE ECG - SINUS RHYTHM BORDERLINE R WAVE PROGRESSION, ANTERIOR LEADS : Confirmed by: Emer Raymundo 25-Nov-2017 21:02:25
== END 2017-11-25 10:51 | disposition home or self-care (01) ==
LOC: ER 22:29
DX: R45.851 Suicidal ideations (principal); F10.129 Alcohol abuse with intoxication, unspecified; Y90.8 Blood alcohol level of 240 mg/100 ml or more; R74.8 Abnormal levels of other serum enzymes; R79.89 Other specified abnormal findings of blood chemistry; R10.13 Epigastric pain; I10 Essential (primary) hypertension; R00.0 Tachycardia, unspecified; J44.9 Chronic obstructive pulmonary disease, unspecified; F12.10 Cannabis abuse, uncomplicated; F17.200 Nicotine dependence, unspecified, uncomplicated; Z56.0 Unemployment, unspecified
CPT/HCPCS: 93005; 99285; 96361; 96375; 96365; 36415; 80307 ×4; 83690; 85025; 82272; 80053; 81001; 84484; 74160; 93010; J3490; J2060; J3411; J7030; J7050

== ENCOUNTER 2017-12-03 21:57 | Emergency (ER) | payer SELFPAY ==
[2017-12-03] MEDS ORDERED: DIAZEPAM 5 MG TABLET PO ONE (23:40)
[2017-12-03] MEDS ORDERED: ACETAMINOPHEN 325 MG TABLET PO ONE (23:40)
[2017-12-03] MEDS ORDERED: IBUPROFEN 600 MG TABLET PO ONE (23:40)
--- NOTE | 2017-12-03 23:43 | ER Document Report ---
ED General - General Chief Complaint: Psych Problem Stated Complaint: SUICIDIAL IDEATION Time Seen by Provider: 12/03/17 22:18 Cannot obtain history due to: Intoxicated Notes: Patient is a 52-year-old male with a past medical history of alcohol dependence , polysubstance abuse, depression and anxiety with a history of suicidal ideation who presents intoxicated with associated suicidal ideation. Patient reports that over the past several days he has had passive suicidal ideation without a specific plan. He does admit to access to firearms but states "I would never waste a bullet like that". Patient is a difficult historian, frequently deflecting questions regarding his mental health with "it does not matter". Patient denies making any attempt to harm himself today. He does admit to using alcohol and marijuana as well as "mellow yellow pills". Patient' s only medical complaint is that he has a dull, constant, throbbing headache on the right side of his head. He states that this started gradually throughout the day today and has been progressively worsening. He notes a history of similar past. He denies any associated focal weakness, numbness, fever or head trauma. History is otherwise unable to be further obtained secondary to patient 's mental status and intoxication TRAVEL OUTSIDE OF THE [place] IN LAST 30 DAYS: No - Related Data Allergies/Adverse Reactions: No Known Allergies Allergy (Verified 11/25/17 05:22) Past Medical History - General Information source: Patient - Social History Smoking Status: Current Every Day Smoker Chew tobacco use (# tins/day): No Frequency of alcohol use: Heavy Drug Abuse: Marijuana, Prescription drugs Lives with: Alone Family History: Reviewed & Not Pertinent Patient has suicidal ideation: No Patient has homicidal ideation: No - Past Medical History Cardiac Medical History: Reports: Hx Hypertension Pulmonary Medical History: Reports: Hx COPD Renal/ Medical History: Denies: Hx Peritoneal Dialysis GI Medical History: Reports: Hx Gastroesophageal Reflux Disease, Hx Ulcer Past Surgical History: Reports: Hx Orthopedic Surgery - L thumb; L knee - Immunizations Hx Diphtheria, Pertussis, Tetanus Vaccination: No Review of Systems - Review of Systems Notes: Constitutional: Negative for fever. HENT: Negative for sore throat. Eyes: Negative for visual changes. Cardiovascular: Negative for chest pain. Respiratory: Negative for shortness of breath. Gastrointestinal: Negative for abdominal pain, vomiting or diarrhea. Genitourinary: Negative for dysuria. Musculoskeletal: Negative for back pain. Skin: Negative for rash. Neurological: Positive for headaches, negative for weakness or numbness. 10 point ROS negative except as marked above and in HPI. Physical Exam - Vital signs Vitals: Temp Pulse Resp BP Pulse Ox 98.6 F 109 H 20 135/69 H 98 12/03/17 22:22 12/03/17 22:22 12/03/17 22:22 12/03/17 22:22 12/03/17 22:22 Interpretation: Tachycardic Notes: PHYSICAL EXAMINATION: GENERAL: Somewhat disheveled but in no acute distress. Moderately intoxicated HEAD: Atraumatic, normocephalic. EYES: Pupils equal round and reactive to light, extraocular movements intact, sclera anicteric, conjunctiva are normal. ENT: nares patent, oropharynx clear without exudates. Moist mucous membranes. NECK: Normal range of motion, supple without lymphadenopathy LUNGS: Breath sounds clear to auscultation bilaterally and equal. No wheezes rales or rhonchi. HEART: Regular rate and rhythm without murmurs ABDOMEN: Soft, nontender, normoactive bowel sounds. No guarding, no rebound. No masses appreciated. EXTREMITIES: Normal range of motion, no pitting or edema. No cyanosis. NEUROLOGICAL: Face symmetric. Tongue protrudes midline. Extraocular motions intact. Pupils are 2 mm and equally reactive. Normal speech, normal gait. 5 out of 5 strength in both the distal and proximal upper and lower extremities bilaterally. Sensation is grossly intact throughout. Finger to nose testing normal. Pronator drift normal. PSYCH: Moderately intoxicated SKIN: Warm, Dry, normal turgor, no rashes or lesions noted. Course - Re-evaluation Re-evalutation: 12/03/17 23:41 Patient presents with acute alcohol and polysubstance intoxication with associated suicidal ideation. Patient is a guarded historian, frequently states "it does not matter" when I asked him targeted questions to assess for his risk of suicide completion. He does however admit to ongoing suicidal ideation. He admits to heavy alcohol and drug use tonight. He also states that he feels he is beginning to withdraw from alcohol states that he typically has tremulousness and vomiting when he withdrawals. He is also complaining of a dull, constant, throbbing headache. Headache history most consistent with a tension type headache. Headache was not maximal in onset, patient has no focal neurologic deficits, no nuchal rigidity, vital signs within normal limits, no papilledema, and patient is overall well in appearance. Based on clinical history and examination I do not suspect an acute subarachnoid hemorrhage, dural venous sinus thrombosis, acute meningitis, or intercranial mass. Given my low clinical suspicion for any acute life-threatening etiology, I do not feel advanced neuro imaging is indicated. Will symptomatically treat, obtain medical screening laboratories and reassess the patient - Vital Signs Vital signs: Temp Pulse Resp BP Pulse Ox 98.6 F 109 H 20 135/69 H 98 12/03/17 22:22 12/03/17 22:22 12/03/17 22:22 12/03/17 22:22 12/03/17 22:22 - Laboratory Result Diagrams: 12/03/17 22:35 12/03/17 22:35 Laboratory results interpreted by me: 12/03/17 12/03/17 22:35 22:35 WBC 11.8 H RBC 4.04 L MCV 110 H MCH 37.4 H RDW 15.0 H Sodium 146.8 H AST 84 H Alkaline Phosphatase 436 H Salicylates < 1.0 L Acetaminophen < 10 L Serum Alcohol 328 H* - EKG Interpretation by Me Additional EKG results interpreted by me: 12/04/17 03:22 Sinus rhythm. Rate 86. No ST elevations or depressions. QTC is 464 Discharge - Discharge Clinical Impression: Suicidal ideation Headache Qualifiers: Headache type: unspecified Headache chronicity pattern: acute headache Intractability: not intractable Qualified Code(s): R51 - Headache Alcohol intoxication Qualifiers: Complication of substance-induced condition: uncomplicated Qualified Code(s): F10.920 - Alcohol use, unspecified with intoxication, uncomplicated Condition: Fair
[2017-12-04] LABS: ABSOLUTE BASOPHILS # (AUTO) 0.2 10^3/uL (0.0-0.2); ABSOLUTE EOSINOPHILS # (AUTO) 0.1 10^3/uL (0.0-0.6); ABSOLUTE LYMPHOCYTES (AUTO) 3.3 10^3/uL (0.5-4.7); ABSOLUTE MONOCYTES (AUTO) 1.1 10^3/uL (0.1-1.4); ABSOLUTE NEUT (AUTO) 7.1 10^3/uL (1.7-8.2); BASOPHILS % (AUTO) 1.4 % (0-2); EOSINOPHILS % (AUTO) 0.9 % (0-6); HEMATOCRIT 44.5 % (37.9-51.0); HEMOGLOBIN 15.1 g/dL (13.5-17.0); LYMPHOCYTES % (AUTO) 28.2 % (13-45); MEAN CORPUSCULAR HEMOGLOBIN 37.4 pg (27.0-33.4); MONOCYTES % (AUTO) 9.1 % (3-13); PLATELET COUNT 258 10^3/uL (150-450); RED BLOOD COUNT 4.04 10^6/uL (4.35-5.55); SEGMENTED NEUTROPHILS % (AUTO) 60.4 % (42-78); TOTAL CELLS COUNTED % (AUTO) 100 %; WHITE BLOOD COUNT 11.8 10^3/uL (4.0-10.5)
[2017-12-04 00:04] LABS: ALANINE AMINOTRANSFERASE 36 U/L (21-72); ALBUMIN 4.2 g/dL (3.5-5.0); ALKALINE PHOSPHATASE 436 U/L (38-126); ANION GAP 17 (5-19); ASPARTATE AMINO TRANSFERASE 84 U/L (17-59); BILIRUBIN,DIRECT 0.4 mg/dL (0.0-0.4); BILIRUBIN,TOTAL 0.6 mg/dL (0.2-1.3); BLOOD UREA NITROGEN 11 mg/dL (7-20); CARBON DIOXIDE 26 mmol/L (22-30); CHLORIDE 104 mmol/L (98-107); GLUCOSE 94 mg/dL (75-110); POTASSIUM 4.1 mmol/L (3.6-5.0); SODIUM 146.8 mmol/L (137-145); TOTAL PROTEIN 7.1 g/dL (6.3-8.2)
[2017-12-04 00:17] LABS: ACETAMINOPHEN < 10 ug/mL (10-30); SALICYLATE < 1.0 mg/dL (2.0-20.0)
[2017-12-04 00:20] LABS: ALCOHOL 328 mg/dL (NONE DETECTED)
[2017-12-04 00:31] LABS: POLYCHROMASIA SLIGHT; TOXIC GRANULATION SLIGHT
[2017-12-04 00:32] LABS: ANISOCYTOSIS SLIGHT; PLATELET CLUMPS PRESENT; PLATELET COMMENT ADEQUATE
[2017-12-04 00:33] LABS: MEAN CORPUSCULAR VOLUME 110 fl (80-97)
[2017-12-04 07:52] LABS: APPEARANCE,URINE SLIGHTLY-CLOUDY; BILIRUBIN,URINE NEGATIVE (NEGATIVE); COLOR,URINE AMBER; GLUCOSE, URINE NEGATIVE (NEGATIVE); KETONES,URINE 20 mg/dL (NEGATIVE); LEUKOCYTE ESTERASE,URINE NEGATIVE (NEGATIVE); NITRITE,URINE NEGATIVE (NEGATIVE); PROTEIN,URINE 30 mg/dL (NEGATIVE); URINE SPECIFIC GRAVITY 1.026
[2017-12-04 08:06] LABS: URINE AMPHETAMINES SCREEN NEGATIVE; URINE BARBITURATES SCREEN NEGATIVE; URINE BENZODIAZEPINES SCREEN UNCONFIRMED POSITIVE; URINE COCAINE SCREEN NEGATIVE; URINE MARIJUANA (THC) SCREEN UNCONFIRMED POSITIVE; URINE METHADONE SCREEN NEGATIVE; URINE PHENCYCLIDINE SCREEN NEGATIVE
--- NOTE | 2017-12-04 08:18 | EKG REPORT ---
SEVERITY:- NORMAL ECG - SINUS RHYTHM : Confirmed by: Osman Paz MD 04-Dec-2017 08:17:57
--- NOTE | 2017-12-04 09:05 | ER Document Report ---
Doctor's Note Notes: 12/04/17 09:05 Patient was seen and examined during the psychiatric rounds this morning. All of his lab work reviewed. Patient is here for alcohol intoxication as well as drug abuse. Patient was unclear about his suicidal ideations. This morning patient is awake, oriented, clinically sober. Patient denies any suicidal or homicidal ideations today. Patient has mild signs of withdrawal this morning. Patient was given 4 mg of oral lorazepam. Patient has a plan to go home and he is planning to go to work tomorrow. Patient feels very remorseful and regretful about his drinking habits. Patient is not interested in inpatient detox. No more suicidal or homicidal ideations this morning. 12/04/17 11:47 Patient is doing well, no more signs of withdrawal. Patient has his girlfriend at bedside who will take him home. Patient was seen by behavioral health team as well. Patient was given resources for outpatient detox as well as community resources for AA meetings. Patient was discharged clinically sober in good medical condition.
[2017-12-04] MEDS ORDERED: LORAZEPAM 1 MG TABLET PO SCH (09:30)
--- NOTE | 2017-12-04 10:28 | PSYCHOLOGICAL NOTE ---
Psych Note - Psych Note Psych Note: Reason for consult: Alcohol intoxication/ depression and anxiety complaint Eval: 10:20 am Final Disposition 11:30 am Patient is a 52-year-old male. Patient stated "I just got drunk last night that is all". Patient reports he was not endorsing any thoughts of suicidal or homicidal ideation. Patient reports he has never been to a psychiatric inpatient hospital. Patient reports that he had therapy several years ago he was going through a divorce. Patient reports he does not utilize drugs. Patient reports he drinks half a fifth of alcohol per day ( referring to Vodka) . Patient reports he knows he has a drinking problem but does not want any substance use therapy right now. Patient reports that he called the ambulance to come pick him up last night because he was feeling drunk. Patient reports he never actually received an official diagnosis of anxiety and depression from a doctor. Patient reports he lives with his who is supportive of him and gives consent to behavioral health to contact his to coordinate. Patient stated now that he is sober he just wants to go home.Patient reports his is on her way. Patient reports he works for a [employer] company and plans on going to work tomorrow. 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 Patient denies SI/HI. Recommendation for patient to follow-up with an outpatient provider/substance use therapy. Clinician provided psychoeducation on the effects of alcohol use. Clinician observed this visit is related to substance abuse. Clinician patient demonstrates linear, logical, and coherent thinking. Clinician observed patient has future oriented thinking (e.g.discussing work). Resources were provided to patient. Attending physician in agreement with plan. Consulted with Dr. Winn regarding the management and care of patient.
[2017-12-04 12:06] VITALS: BP 147/92
[2017-12-05 16:20] LABS: PATH REVIEW PATHOLOGIST REVIEWED
== END 2017-12-04 12:10 | disposition home or self-care (01) ==
LOC: ER 21:57
DX: R45.851 Suicidal ideations (principal); R51 Headache; F10.920 Alcohol use, unspecified with intoxication, uncomplicated; F17.200 Nicotine dependence, unspecified, uncomplicated; I10 Essential (primary) hypertension; J44.9 Chronic obstructive pulmonary disease, unspecified
CPT/HCPCS: 36415; 80053; 80307; 81001; 85025; 93005; 93010; 99285

== ENCOUNTER 2018-01-04 20:51 | Emergency (ER) | payer SELFPAY ==
--- NOTE | 2018-01-04 21:27 | ER Document Report ---
ED Psych Disorder / Suicide - General Chief Complaint: Psych Problem Stated Complaint: ANXIETY ISSUE Time Seen by Provider: 01/04/18 21:21 Notes: Patient is a 52-year-old male with a past medical history of alcohol dependence , polysubstance abuse, depression and anxiety, presents by EMS intoxicated. He is under a lot of stress due to several recent deaths in the family and he is continued to drink very heavily. He initially told EMS that he had chest pain, but he said that he told 911 he had chest pain so that EMS would come quicker. Patient is clinically intoxicated and admits to drinking a heavy amount tonight. He says that no one cares about him anymore. Patient denies current chest pain, shortness of breath or any other complaints. TRAVEL OUTSIDE OF THE [place] IN LAST 30 DAYS: No - Related Data Allergies/Adverse Reactions: No Known Allergies Allergy (Verified 11/25/17 05:22) Past Medical History - Social History Smoking Status: Current Every Day Smoker Frequency of alcohol use: Heavy Family History: Reviewed & Not Pertinent - Past Medical History Cardiac Medical History: Reports: Hx Hypertension Pulmonary Medical History: Reports: Hx COPD Renal/ Medical History: Denies: Hx Peritoneal Dialysis GI Medical History: Reports: Hx Gastroesophageal Reflux Disease, Hx Ulcer Past Surgical History: Reports: Hx Orthopedic Surgery - L thumb; L knee - Immunizations Hx Diphtheria, Pertussis, Tetanus Vaccination: No Review of Systems - Review of Systems Notes: REVIEW OF SYSTEMS: CONSTITUTIONAL: -fevers, -chills EENT: -eye pain, -difficulty swallowing, -nasal congestion CARDIOVASCULAR: -chest pain, -syncope. RESPIRATORY: -cough, -SOB GASTROINTESTINAL: -abdominal pain, -nausea, -vomiting, -diarrhea GENITOURINARY: -dysuria, -hematuria MUSCULOSKELETAL: -back pain, -neck pain SKIN: -rash or skin lesions. HEMATOLOGIC: -easy bruising or bleeding. LYMPHATIC: -swollen, enlarged glands. NEUROLOGICAL: -altered mental status or loss of consciousness, -headache, - neurologic symptoms PSYCHIATRIC: +anxiety, +depression, +alcohol abuse ALL OTHER SYSTEMS REVIEWED AND NEGATIVE. Physical Exam - Vital signs Vitals: Temp Pulse Resp BP Pulse Ox 98.4 F 89 20 136/87 H 100 01/04/18 21:20 01/04/18 21:20 01/04/18 21:20 01/04/18 21:20 01/04/18 21:20 - Notes Notes: PHYSICAL EXAMINATION: GENERAL: No acute distress. HEAD: Atraumatic, normocephalic. EYES: Pupils equal round and reactive to light, extraocular movements intact, sclera anicteric, conjunctiva are normal. ENT: nares patent, oropharynx clear without exudates. Moist mucous membranes. NECK: Normal range of motion, supple without lymphadenopathy LUNGS: Breath sounds clear to auscultation bilaterally and equal. No wheezes rales or rhonchi. HEART: Regular rate and rhythm without murmurs ABDOMEN: Soft, nontender, normoactive bowel sounds. No guarding, no rebound. No masses appreciated. EXTREMITIES: Normal range of motion, no pitting or edema. No cyanosis. NEUROLOGICAL: Cranial nerves grossly intact. Normal speech, normal gait. Normal sensory and motor exams. PSYCH: Sad affect, clinically intoxicated. SKIN: Warm, Dry, normal turgor, no rashes or lesions noted. Course - Re-evaluation Re-evalutation: 01/04/18 21:35 Pt appears clinically intoxicated and he admits to drinking alcohol today. ETOH is 394. He is depressed that multiple family members have and no one cares about him. He has multiple presentations in the ER for similar complaints. When he chun up, he denies active suicidal ideation. Will reassess patient once he is more sober. - Vital Signs Vital signs: Temp Pulse Resp BP Pulse Ox 98.4 F 89 20 136/87 H 100 01/04/18 21:20 01/04/18 21:20 01/04/18 21:20 01/04/18 21:20 01/04/18 21:20 - Laboratory Result Diagrams: 01/04/18 20:50 01/04/18 20:50 Laboratory results interpreted by me: 01/04/18 01/04/18 20:50 20:50 MCV 110 H MCH 37.5 H RDW 14.2 H Sodium 150.2 H Carbon Dioxide 33 H Direct Bilirubin 0.5 H AST 63 H Alkaline Phosphatase 304 H Salicylates < 1.0 L Acetaminophen < 10 L Serum Alcohol 394 H* Discharge - Discharge Clinical Impression: ETOH abuse Depression Qualifiers: Depression Type: unspecified Qualified Code(s): F32.9 - Major depressive disorder, single episode, unspecified Condition: Stable Additional Instructions: CHRONIC ALCOHOLISM and ALCOHOL ABUSE: Your evaluation reveals evidence of chronic alcoholism, an addiction to alcohol. The tendency to alcoholism may be inherited. Chronic use of alcohol weakens muscles, causes fatty deposits in the liver , damages the stomach, makes you more prone to infections, and can cause defects in unborn children. In the long run, brain atrophy and cirrhosis of the liver result. You are also at greater risk for certain types of cancer, such as cancer of the mouth, throat, stomach, and liver. Counselling services are available to help you. In-hospital treatment programs often help. Support groups such as Alcoholics Anonymous can be very useful in beating this addiction. Your physician can make a referral for you. As alcoholics often are prone to other addictions, you should discuss your use of any other medications with the doctor. OVERDOSE / INGESTION: You have taken more medication than you should have. After your evaluation and care, it is felt that your overdose is not likely to be harmful or of any significant consequences to you and you are being discharged. In the future, you should be careful not to take more medications than what is prescribed for you. Although your overdose does not seem to be of any danger to you at this time, if you develop any unusual or unexpected symptoms after your discharge, you should return to the Emergency Department immediately for re-evaluation. FOLLOW-UP CARE: If you have been referred to a physician for follow-up care, call the physician s office for an appointment as you were instructed or within the next two days. If you experience worsening or a significant change in your symptoms, notify the physician immediately or return to the Emergency Department at any time for re-evaluation. DEPRESSION: Your evaluation reveals that you have mental depression. While symptoms may be vague, they often include disturbance of sleep, fatigue, loss of appetite , and general loss of interest in life. While depression may be a side effect of drugs, or a reaction to a major change in your life, many cases have no known cause. If depression is acute, and related to a major loss in your life, you can expect it to clear completely with time. If you have been depressed a long time , are prone to repeated bouts of depression or low mood, or have been thinking of suicide, get help. Depression can be treated with anti-depressant medication and counselling. Long-term depression will often take a few weeks to clear, even with appropriate medication. Follow-up care is important. FOLLOW-UP CARE: If you have been referred to a physician for follow-up care, call the physician s office for an appointment as you were instructed or within the next two days. If you experience worsening or a significant change in your symptoms, notify the physician immediately or return to the Emergency Department at any time for re-evaluation. Forms: Elevated Blood Pressure, Smoking Cessation Education Referrals: [facility] [Outside] - Follow up as needed
[2018-01-04 21:31] LABS: ABSOLUTE BASOPHILS # (AUTO) 0.1 10^3/uL (0.0-0.2); ABSOLUTE EOSINOPHILS # (AUTO) 0.1 10^3/uL (0.0-0.6); ABSOLUTE LYMPHOCYTES (AUTO) 2.6 10^3/uL (0.5-4.7); ABSOLUTE MONOCYTES (AUTO) 0.6 10^3/uL (0.1-1.4); EOSINOPHILS % (AUTO) 1.4 % (0-6); HEMOGLOBIN 16.4 g/dL (13.5-17.0); LYMPHOCYTES % (AUTO) 27.3 % (13-45); MEAN CORPUSCULAR HEMOGLOBIN 37.5 pg (27.0-33.4); MEAN CORPUSCULAR HGB CONC 34.2 g/dL (32.0-36.0); MEAN CORPUSCULAR VOLUME 110 fl (80-97); MONOCYTES % (AUTO) 6.2 % (3-13); PLATELET COUNT 200 10^3/uL (150-450); RED BLOOD COUNT 4.38 10^6/uL (4.35-5.55); RED CELL DISTRIBUTION WIDTH 14.2 % (11.5-14.0); SEGMENTED NEUTROPHILS % (AUTO) 64.1 % (42-78); TOTAL CELLS COUNTED % (AUTO) 100 %; WHITE BLOOD COUNT 9.4 10^3/uL (4.0-10.5)
[2018-01-04 21:43] LABS: ALANINE AMINOTRANSFERASE 29 U/L (21-72); ALBUMIN 4.2 g/dL (3.5-5.0); ALKALINE PHOSPHATASE 304 U/L (38-126); ANION GAP 12 (5-19); ASPARTATE AMINO TRANSFERASE 63 U/L (17-59); BILIRUBIN,DIRECT 0.5 mg/dL (0.0-0.4); BILIRUBIN,TOTAL 0.5 mg/dL (0.2-1.3); BLOOD UREA NITROGEN 7 mg/dL (7-20); CALCIUM 9.1 mg/dL (8.4-10.2); CARBON DIOXIDE 33 mmol/L (22-30); CHLORIDE 105 mmol/L (98-107); CREATINE KINASE 77 U/L (55-170); GLUCOSE 109 mg/dL (75-110); POTASSIUM 4.6 mmol/L (3.6-5.0); SODIUM 150.2 mmol/L (137-145); TOTAL PROTEIN 7.6 g/dL (6.3-8.2)
[2018-01-04 21:56] LABS: ACETAMINOPHEN < 10 ug/mL (10-30); SALICYLATE < 1.0 mg/dL (2.0-20.0)
[2018-01-04 21:58] LABS: ALCOHOL 394 mg/dL (NONE DETECTED)
--- NOTE | 2018-01-04 22:52 | EKG REPORT ---
SEVERITY:- ABNORMAL ECG - SINUS RHYTHM LEFT ATRIAL ABNORMALITY CONSIDER ANTERIOR INFARCT BORDERLINE PROLONGED QT INTERVAL : Confirmed by: Emre Raymundo 04-Jan-2018 19:51:21
[2018-01-05 00:17] LABS: APPEARANCE,URINE CLEAR; BILIRUBIN,URINE NEGATIVE (NEGATIVE); COLOR,URINE YELLOW; GLUCOSE, URINE NEGATIVE (NEGATIVE); KETONES,URINE NEGATIVE (NEGATIVE); LEUKOCYTE ESTERASE,URINE NEGATIVE (NEGATIVE); NITRITE,URINE NEGATIVE (NEGATIVE); PROTEIN,URINE NEGATIVE (NEGATIVE); URINE SPECIFIC GRAVITY 1.008
[2018-01-05 00:40] LABS: URINE AMPHETAMINES SCREEN NEGATIVE; URINE BARBITURATES SCREEN NEGATIVE; URINE BENZODIAZEPINES SCREEN NEGATIVE; URINE COCAINE SCREEN NEGATIVE; URINE MARIJUANA (THC) SCREEN UNCONFIRMED POSITIVE; URINE METHADONE SCREEN NEGATIVE; URINE PHENCYCLIDINE SCREEN NEGATIVE
[2018-01-05] MEDS ORDERED: LORAZEPAM 1 MG TABLET PO ONE (05:51)
[2018-01-05] MEDS ORDERED: LORAZEPAM INJ 2 MG/1 ML VIAL IM ONE (06:00)
[2018-01-05] MEDS ORDERED: PROMETHAZINE HCL INJ 25 MG/1 ML VIAL IM ONE (06:00)
[2018-01-05 12:20] VITALS: BP 137/88
--- NOTE | 2018-01-05 13:17 | ER Document Report ---
Doctor's Note Notes: 01/05/18 13:16 Rounds: Chart reviewed and patient interviewed. Patient was here to be seen for depression and suicidal ideation and alcohol abuse. Vital signs have all been normal. Labs showed a blood alcohol of 394. This morning, patient appears to be medically stable for transfer or discharge. Rigoberto Arreguin MD
--- NOTE | 2018-01-06 13:59 | PSYCHOLOGICAL NOTE ---
Psych Note - Psych Note Psych Note: reason for consult: suicidal ideation Patient is a 52-year-old male with a past medical history of alcohol dependence , polysubstance abuse, depression and anxiety, presents by EMS intoxicated. He is under a lot of stress due to several recent deaths in the family and he is continued to drink very heavily. He initially told EMS that he had chest pain, but he said that he told 911 he had chest pain so that EMS would come quicker. Patient is clinically intoxicated and admits to drinking a heavy amount tonight. He says that no one cares about him anymore. Patient disclosed that he is feeling better than last night. He denies current suicidal and homicidal ideation but discusses possible detox options with clinician. Behavior health team had confirmed there is no current bed availability at the [facility], however clinician spoke with patient about discussing inpatient substance abuse treatment with [facility]. Patient discloses he would be interested in that. Patient is alert and orientated to person, place, time and circumstance. Mood is euthymic with congruent affect. Patient denies current suicidal homicidal ideation. Clinician notes patient did disclose passive suicidal ideation while under the influence. Eye contact was well-maintained. Conversational speech was within normal rate, tone and prosody. Intellectual abilities appear to be within average range. Attention and concentration are good. 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 Patient denies SI/HI. Recommendation for patient to follow-up with an outpatient provider/substance use therapy. Clinician provided psychoeducation on the effects of alcohol use. Clinician observed this visit is related to substance abuse and patient is disclosing interest in sobriety. Patient demonstrates linear, logical, and coherent thinking. Clinician observed patient has future oriented thinking (e.g.discussing work and going to detox). Resources were provided to patient. Attending physician in agreement with plan. Consulted with Dr. Winn regarding the management and care of patient; attending physician is in agreement with recommendations and disposition.
== END 2018-01-05 12:42 | disposition home or self-care (01) ==
LOC: ER 20:51
DX: F10.10 Alcohol abuse, uncomplicated (principal); F32.9 Major depressive disorder, single episode, unspecified; F41.9 Anxiety disorder, unspecified; F19.10 Other psychoactive substance abuse, uncomplicated; F17.200 Nicotine dependence, unspecified, uncomplicated
CPT/HCPCS: 93005; 99284; 96372; 96374; 36415; 80307 ×4; 82550; 85025; 80053; 81001; 84484; 93010; J2060; J2550

== ENCOUNTER 2018-01-08 23:58 | Emergency (ER) | payer SELFPAY ==
[2018-01-09] MEDS ORDERED: NICOTINE 21 MG/24 HR PATCH.TD24 TD ONE (00:44)
--- NOTE | 2018-01-09 00:45 | EKG REPORT ---
SEVERITY:- ABNORMAL ECG - SINUS RHYTHM LEFT ATRIAL ABNORMALITY BORDERLINE R WAVE PROGRESSION, ANTERIOR LEADS : Confirmed by: Emre Raymundo 09-Jan-2018 00:44:25
--- NOTE | 2018-01-09 00:45 | ER Document Report ---
ED Psych Disorder / Suicide - General Mode of Arrival: Ambulatory Information source: Patient TRAVEL OUTSIDE OF THE [place] IN LAST 30 DAYS: No <MELVI ISNGH - Last Filed: 01/09/18 02:09> <DHAVAL ROBLES - Last Filed: 01/09/18 05:53> - General Chief Complaint: Psych Problem Stated Complaint: POSSIBLE IVC Time Seen by Provider: 01/09/18 00:12 Notes: Patient is a 53 year old male with a history of alcoholism, polysubstance abuse , SI, depression and anxiety presents to the emergency department, intoxicated, complaining of suicidal ideation, suicidal plan and depression. When initially in the room, patient states he does not want to talk about why he is here. When asked if he had any pain he states he has a headache and was depressed. He states his left him 3 days ago and has been subsequently severely depressed. Patient states that consuming alcohol does not help with his depression anymore and states he is susceptible to alcohol withdrawals further stating he would normally drink all day and begin to have symptoms the next morning. He also states he has been here multiple times for similar symptoms and feels as if no-one wants to help him. Patient states that he has been trying to be a better person and that he does not want to hurt himself or anyone else. According to IVC paperwork brought in by law enforcement patient had an initial suicidal plan to shoot or stab himself. (MELVI SINGH) - Related Data Allergies/Adverse Reactions: No Known Allergies Allergy (Verified 11/25/17 05:22) Past Medical History - General Information source: Patient, Law Enforcement, [facility] Records - Social History Smoking Status: Current Every Day Smoker Cigarette use (# per day): Yes - 2 packs a day Chew tobacco use (# tins/day): No Smoking Education Provided: No Frequency of alcohol use: Heavy Family History: Reviewed & Not Pertinent - Past Medical History Cardiac Medical History: Reports: Hx Hypertension Pulmonary Medical History: Reports: Hx COPD GI Medical History: Reports: Hx Gastroesophageal Reflux Disease, Hx Ulcer Past Surgical History: Reports: Hx Orthopedic Surgery - L thumb; L knee - Immunizations Hx Diphtheria, Pertussis, Tetanus Vaccination: No <MELVI SINGH - Last Filed: 01/09/18 02:09> Review of Systems - Review of Systems Constitutional: No symptoms reported EENT: No symptoms reported Cardiovascular: No symptoms reported Respiratory: No symptoms reported Gastrointestinal: No symptoms reported Genitourinary: No symptoms reported Male Genitourinary: No symptoms reported Musculoskeletal: No symptoms reported Skin: No symptoms reported Hematologic/Lymphatic: No symptoms reported Neurological/Psychological: See HPI, Headaches -: Yes All other systems reviewed and negative <MELVI SINGH - Last Filed: 01/09/18 02:09> Physical Exam <MELVI SINGH - Last Filed: 01/09/18 02:09> <DHAVAL ROBLES - Last Filed: 01/09/18 05:53> - Vital signs Vitals: Temp Pulse Resp BP Pulse Ox 97.3 F 102 H 20 152/96 H 96 01/08/18 23:58 01/08/18 23:58 01/08/18 23:58 01/08/18 23:58 01/08/18 23:58 - Notes Notes: GENERAL: Alert, interacts well. No acute distress. HEAD: Normocephalic, atraumatic. EYES: Pupils equal, round, and reactive to light. Extraocular movements intact. ENT: Oral mucosa moist, tongue midline. NECK: Full range of motion. Supple. Trachea midline. LUNGS: Clear to auscultation bilaterally, no wheezes, rales, or rhonchi. No respiratory distress. HEART: Regular rate and rhythm. No murmurs, gallops, or rubs. ABDOMEN: Soft, tender to palpation to the LUQ and Epigastric area. Non- distended. Bowel sounds present in all 4 quadrants. EXTREMITIES: Moves all 4 extremities spontaneously. No edema, radial, and dorsalis pedis pulses 2/4 bilaterally. No cyanosis. NEUROLOGICAL: Alert and oriented x3. Normal speech. PSYCH: Tearful. SKIN: Warm, dry, and normal turgor. No rashes or lesions noted. (MELVI SINGH) Course - Laboratory Result Diagrams: 01/09/18 01:19 01/09/18 01:19 <MELVI SINGH - Last Filed: 01/09/18 02:09> - Laboratory Result Diagrams: 01/09/18 01:19 01/09/18 01:19 <DHAVAL ROBLES - Last Filed: 01/09/18 05:53> - Re-evaluation Re-evalutation: 01/09/18 02:49 CBC shows very slight leukocytosis of 10.8 and a macrocytosis without anemia otherwise unremarkable, CMP shows slightly elevated sodium 146.8, anion gap is elevated at 21, this is likely a combination of dehydration and alcoholic ketosis, alcohol level is 341, he has no altered mental status, lipase is mildly elevated 323.4 consistent with mild alcoholic pancreatitis. Patient is being ordered thiamine and folic acid by mouth, IV normal saline, repeat labs in the morning to ensure that the gap closes. No evidence of alcohol withdrawal right now. Patient will be held overnight on initial petition from the [facility] and evaluated further by behavioral health team in the morning. ( DHAVAL ROBLES) - Vital Signs Vital signs: Temp Pulse Resp BP Pulse Ox 97.7 F 101 H 16 117/80 96 01/09/18 05:19 01/09/18 05:19 01/09/18 05:19 01/09/18 05:19 01/09/18 05:19 - Laboratory Laboratory results interpreted by me: 01/09/18 01/09/18 01:19 01:19 WBC 10.8 H MCV 108 H MCH 37.7 H RDW 14.4 H Sodium 146.8 H Anion Gap 21 H Glucose 148 H Direct Bilirubin 0.7 H AST 85 H Alkaline Phosphatase 337 H Lipase 323.4 H Salicylates < 1.0 L Acetaminophen < 10 L Serum Alcohol 341 H* - EKG Interpretation by Me Additional EKG results interpreted by me: 01/09/18 02:50 EKG shows sinus rhythm at a rate 94, normal axis, normal intervals, no ST segment elevations or depressions, slight T-wave inversion in aVL which is isolated otherwise unremarkable per my interpretation. (DHAVAL ROBLES) Discharge <MELVI SINGH - Last Filed: 01/09/18 02:09> <DHAVAL ROBLES - Last Filed: 01/09/18 05:53> - Discharge Clinical Impression: ETOH abuse Depression Qualifiers: Depression Type: unspecified Qualified Code(s): F32.9 - Major depressive disorder, single episode, unspecified Scribe Attestation: 01/09/18 05:53 I personally performed the services described in the documentation, reviewed and edited the documentation which was dictated to the scribe in my presence, and it accurately records my words and actions. (DHAVAL ROBLES) Scribe Documentation - Scribe Written by Patricia:: Patricia Arana, 01/09/2018 01:25 acting as scribe for :: Angelica <MELVI SINGH - Last Filed: 01/09/18 02:09>
[2018-01-09 01:33] LABS: ABSOLUTE BASOPHILS # (AUTO) 0.1 10^3/uL (0.0-0.2); ABSOLUTE EOSINOPHILS # (AUTO) 0.1 10^3/uL (0.0-0.6); ABSOLUTE LYMPHOCYTES (AUTO) 2.2 10^3/uL (0.5-4.7); ABSOLUTE MONOCYTES (AUTO) 0.6 10^3/uL (0.1-1.4); ABSOLUTE NEUT (AUTO) 7.7 10^3/uL (1.7-8.2); BASOPHILS % (AUTO) 0.8 % (0-2); EOSINOPHILS % (AUTO) 0.8 % (0-6); HEMATOCRIT 48.2 % (37.9-51.0); HEMOGLOBIN 16.8 g/dL (13.5-17.0); LYMPHOCYTES % (AUTO) 20.6 % (13-45); MEAN CORPUSCULAR HEMOGLOBIN 37.7 pg (27.0-33.4); MEAN CORPUSCULAR HGB CONC 34.8 g/dL (32.0-36.0); MEAN CORPUSCULAR VOLUME 108 fl (80-97); PLATELET COUNT 161 10^3/uL (150-450); RED BLOOD COUNT 4.46 10^6/uL (4.35-5.55); RED CELL DISTRIBUTION WIDTH 14.4 % (11.5-14.0); SEGMENTED NEUTROPHILS % (AUTO) 71.8 % (42-78); TOTAL CELLS COUNTED % (AUTO) 100 %; WHITE BLOOD COUNT 10.8 10^3/uL (4.0-10.5)
[2018-01-09 01:42] LABS: ALANINE AMINOTRANSFERASE 27 U/L (21-72); ALKALINE PHOSPHATASE 337 U/L (38-126); ASPARTATE AMINO TRANSFERASE 85 U/L (17-59); BILIRUBIN,DIRECT 0.7 mg/dL (0.0-0.4); BILIRUBIN,TOTAL 0.7 mg/dL (0.2-1.3); BLOOD UREA NITROGEN 10 mg/dL (7-20); CHLORIDE 102 mmol/L (98-107); GLUCOSE 148 mg/dL (75-110); LIPASE 323.4 U/L (23-300); POTASSIUM 3.8 mmol/L (3.6-5.0); SODIUM 146.8 mmol/L (137-145); TOTAL PROTEIN 7.6 g/dL (6.3-8.2)
[2018-01-09 01:44] LABS: ACETAMINOPHEN < 10 ug/mL (10-30); SALICYLATE < 1.0 mg/dL (2.0-20.0)
[2018-01-09 01:46] LABS: CARBON DIOXIDE 24 mmol/L (22-30)
[2018-01-09 01:47] LABS: ANION GAP 21 (5-19)
[2018-01-09 01:52] LABS: ALCOHOL 341 mg/dL (NONE DETECTED)
[2018-01-09] MEDS ORDERED: NORMAL SALINE 1000 ML 1,000 ML IV ONE (02:46)
[2018-01-09] MEDS ORDERED: FOLIC ACID/VITAMIN B COMP W-C CAPSULE PO ONE (02:47)
[2018-01-09] MEDS ORDERED: LORAZEPAM 1 MG TABLET PO ONE (08:45)
[2018-01-09] MEDS ORDERED: LORAZEPAM INJ 2 MG/1 ML VIAL IV ONE ×2 (08:53→15:22)
[2018-01-09 09:32] LABS: ALANINE AMINOTRANSFERASE 27 U/L (21-72); ALBUMIN 3.5 g/dL (3.5-5.0); ALKALINE PHOSPHATASE 284 U/L (38-126); ANION GAP 12 (5-19); ASPARTATE AMINO TRANSFERASE 66 U/L (17-59); BILIRUBIN,DIRECT 0.4 mg/dL (0.0-0.4); BILIRUBIN,TOTAL 0.9 mg/dL (0.2-1.3); BLOOD UREA NITROGEN 10 mg/dL (7-20); CALCIUM 8.3 mg/dL (8.4-10.2); CARBON DIOXIDE 28 mmol/L (22-30); CHLORIDE 101 mmol/L (98-107); GLUCOSE 103 mg/dL (75-110); POTASSIUM 3.6 mmol/L (3.6-5.0); SODIUM 141.1 mmol/L (137-145); TOTAL PROTEIN 6.5 g/dL (6.3-8.2)
[2018-01-09] MEDS ORDERED: LORAZEPAM 1 MG TABLET PO SCH (11:15)
--- NOTE | 2018-01-09 11:41 | PSYCHOLOGICAL NOTE ---
Psych Note - Psych Note Psych Note: Reason for evaluation: IVC /suicidal ideation Contact permissions: ( Patient's father) Delvin Lang Junior [phone] Eval:11:00 am Final disposition:4:30 pm Patient is a 53 year old male. Patient reports he was drinking last night. Patient reports he drinks because he has depression. Patient reports his left him a week ago and they are not working it out. Patient reports they were for over a year. Patient reports he is interested in getting detox. Patient reports he is interested in resources regarding substance use. Patient reports he is not having thoughts of wanting to hurt,harm or kill himself or others. Patient reports that he takes care of his 84-year-old father who has Parkinson's disease and lives with him. Patient reports that he is a good support system and aside from his physical ailments he is active in patient's life. Patient reports he never said that he was going to shoot or stab himself , and laughed and stated "I do not want a gun and do not have access to one". Patient reports "aint nothing going to happen I got angry at my and got drunk". Patient reports his left him on his birthday and he does not want to take her back or work things out. Patient reports that his spent a year in custodial and has been out for 9 months and he was there for her. Patient stated "it aint nothing, I'm good". Patient reports mental health has consent to speak with his father. Patient reports his friend Mata who is also his neighbor will transport him home. Patient reports he does not have a car. Patient reports he hangs out with his neighbor, and has a lot of friends. 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 Patient reports he lives with his father. Patient reports he is not feeling physically good. Collateral information: Patient's father Delvin Lang Junior patient's father stated Patient's father stated "we aint got no gun in this home, none whatsoever". Patient's father reports he has no concerns regarding patient's safety. Patient 's father reports that their home is safe and that he does not have access to any dangerous weapons. Patient's father laughed and stated to patient "what did you get yourself into". Clinician observed patient explained to his father that he was drinking and that someone made a statement he made suicidal comments but he stated to his father he does not remember making any comments and stated he did not threaten to harm himself. Clinician observed patient ask his father about Mata and patient's father went next door to get Mata to come pick him up. Clinician observed patient was vomiting, and shaking; patient stated he was withdrawing because he would have been drinking alcohol by now ( around 4 pm). Patient's physician cleared patient medically, and made sure he provided him with education regarding alcohol use. Medication recommendations made by contracted psychiatric [facility] provider Dr. 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 Patient denied suicidal/homicidal ideation and is not responding to internal stimuli. Patient originally agreed to arrange [facility] with [facility] upon discharge, clinician spoke to Latonia Simmons with [facility] and provided patient information for referral and continuity of care. Upon discussing discharge plan just before him leaving, patient stated he was no longer interested in detox however he would give them a call to learn more about outpatient therapy due to him not wanting to leave his father alone for too long. Resources were provided to patient. Clinician provided education to patient regarding substance use, and the scope of practice of a detox facility ( regarding the controlled environment and benefits of medical treatment/ monitoring regarding alcohol withdrawal at a facility). Clinician contacted patient's father to safety plan patient's father stated there is no access to any dangerous items in the home. Patient's father stated he had no concern regarding patient making any self-harm/suicidal comments and stated he ( the patient) just gets drunk. Patient's father arranged transportation with patient 's neighbor Mata. Attending physician in agreement with disposition and plan. Consulted with Dr. Winn regarding the management and care of patient.
[2018-01-09 14:30] LABS: APPEARANCE,URINE CLEAR; BILIRUBIN,URINE SMALL (NEGATIVE); GLUCOSE, URINE NEGATIVE (NEGATIVE); KETONES,URINE TRACE mg/dL (NEGATIVE); LEUKOCYTE ESTERASE,URINE NEGATIVE (NEGATIVE); NITRITE,URINE NEGATIVE (NEGATIVE); PROTEIN,URINE NEGATIVE (NEGATIVE); URINE SPECIFIC GRAVITY 1.019
[2018-01-09 14:38] LABS: COLOR,URINE YELLOW
[2018-01-09 14:47] LABS: URINE AMPHETAMINES SCREEN NEGATIVE; URINE BARBITURATES SCREEN NEGATIVE; URINE BENZODIAZEPINES SCREEN NEGATIVE; URINE COCAINE SCREEN NEGATIVE; URINE MARIJUANA (THC) SCREEN UNCONFIRMED POSITIVE; URINE METHADONE SCREEN NEGATIVE; URINE PHENCYCLIDINE SCREEN NEGATIVE
[2018-01-09] MEDS ORDERED: ONDANSETRON HCL INJ/PF 4 MG/2 ML SDV IV ONE (15:23)
[2018-01-09] MEDS ORDERED: PROMETHAZINE HCL INJ 25 MG/1 ML VIAL IV ONE (15:50)
[2018-01-09 18:31] VITALS: BP 134/79
== END 2018-01-09 18:31 | disposition home or self-care (01) ==
LOC: ER 23:58
DX: F10.129 Alcohol abuse with intoxication, unspecified (principal); F32.9 Major depressive disorder, single episode, unspecified; R51 Headache; F17.210 Nicotine dependence, cigarettes, uncomplicated; I10 Essential (primary) hypertension; J44.9 Chronic obstructive pulmonary disease, unspecified
CPT/HCPCS: 93005; 96376; 99285; 96361; 96374; 96375; 36415; 80307 ×4; 83690; 85025; 80053; 81001; 93010; J2060; J2550; J7030